=== PATIENT | male | born 1960 | race African-American/Black ===

== ENCOUNTER 2019-09-26 11:28 | Inpatient (IN) ==
[2019-09-26] MEDS ORDERED: *HR* HYDROmorphone (PF) 1 MG/ML SYRINGE IVP ONE (11:37)
[2019-09-26] MEDS ORDERED: 0.9 % Sodium Chloride 1,000 ML IVC ONE (11:37)
[2019-09-26] MEDS ORDERED: Acetaminophen 325 MG TABLET PO PRN (12:32)
[2019-09-26] MEDS ORDERED: Ondansetron 4 MG/2 ML VIAL IVP PRN (12:32)
[2019-09-26] MEDS ORDERED: Morphine Sulfate Immed Rel 15 MG TABLET PO PRN (12:34)
[2019-09-26] MEDS ORDERED: Isovue-370 500 ML BOTTLE IVP ONE ×2 (16:27→16:31)
[2019-09-26] MEDS ORDERED: Gadolinium Contrast Agent (WT Based) IV PRN (16:52)
[2019-09-26] MEDS: Ringers Solution, Lactated 1,000 ML IVC SCH (16:53)
[2019-09-26] MEDS: *HR* HYDROcodone/Acet 10/325 mg TABLET PO PRN (16:53)
[2019-09-26] MEDS: Morphine Sulfate ER (12 HR) 30 MG TABLET.ER PO SCH (20:46)
[2019-09-26] MEDS ORDERED: 0.9 % Sodium Chloride 250 ML ONE (21:32)
[2019-09-27] MEDS: Ringers Solution, Lactated 1,000 ML IVC SCH (00:09)
[2019-09-27 05:00] LABS: Immature Reticulocyte % 23.1 % (11.0-38.0); Retculocyte # 0.09 M/mcL (0.05-0.10); Reticulocyte % 4.8 % (1.6-2.8)
[2019-09-27 05:02] LABS: Eosinophils # 0.1 K/mcL (0.0-0.6); Eosinophils % 2.6 %; Hematocrit 20.1 % (37.5-50.1); Hemoglobin 6.6 g/dL (12.9-16.9); Immature Granulocytes % 0.3 % (0-4); Lymphocytes # 0.4 K/mcL (0.6-4.6); Lymphocytes % 14.1 %; Mean Corpuscular HGB Conc 32.8 g/dL (31.6-35.5); Mean Corpuscular Hemoglobin 33.3 pg (28.0-33.3); Mean Corpuscular Volume 101.5 fL (83.0-100.0); Mean Platelet Volume 9.3 fL (9.4-12.4); Monocytes # 0.4 K/mcL (0.0-1.3); Monocytes % 12.2 %; Neutrophils # 2.2 K/mcL (1.6-8.9); Platelet Count 134 K/mcL (140-400); Red Blood Count 1.98 M/mcL (4.19-5.50); Red Cell Distribution Width 17.1 % (11.5-14.5); Segmented Neutrophils % 69.8 %; White Blood Count 3.1 K/mcL (4.3-11.1)
[2019-09-27 05:19] LABS: BUN/Creatinine Ratio 14 (6-26); Blood Urea Nitrogen 12 mg/dL (6-20); Calcium 8.5 mg/dL (8.6-10.3); Carbon Dioxide 25 mEq/L (23-29); Chloride 109 mEq/L (98-107); Glucose 103 mg/dL (70-105); Magnesium 1.9 mg/dL (1.6-2.6); Osmolality,Calculated 282 (280-300); Phosphorous 3.2 mg/dL (2.7-4.5); Potassium 4.1 mEq/L (3.5-5.1); Sodium 136 mEq/L (136-145); eGFR For African Americans > 60 (> 60); eGFR For Non-African Americans > 60 (> 60)
[2019-09-27 05:21] LABS: Alanine Aminotransferase 46 Units/L (7-52); Albumin/Globulin Ratio 1.5 (1.1-2.2); Alkaline Phosphatase 311 Units/L (34-104); Aspartate Amino Transferase 32 Units/L (13-39); BUN/Creatinine Ratio 14 (6-26); Bilirubin,Total 0.9 mg/dL (0.3-1.0); Blood Urea Nitrogen 12 mg/dL (6-20); Calcium 8.4 mg/dL (8.6-10.3); Carbon Dioxide 25 mEq/L (23-29); Chloride 108 mEq/L (98-107); Glucose 104 mg/dL (70-105); Osmolality,Calculated 282 (280-300); Sodium 136 mEq/L (136-145); eGFR For African Americans > 60 (> 60); eGFR For Non-African Americans > 60 (> 60)
[2019-09-27] MEDS ORDERED: Acetaminophen IV 1,000 MG/100 ML INFUS..BTL IVPB ONE (05:39)
[2019-09-27 05:43] LABS: Folate 3.7 ng/mL (3.0-16.0)
[2019-09-27] MEDS: 0.9 % Sodium Chloride 1,000 ML IVC SCH (06:13)
[2019-09-27 06:20] LABS: Hepatitis B Surface Antigen Nonreactive (Nonreactive)
[2019-09-27 06:48] LABS: Hepatitis C Virus Antibody Nonreactive (Nonreactive)
[2019-09-27 06:49] LABS: Hepatitis B Core IgM Nonreactive (Nonreactive)
[2019-09-27 06:50] LABS: Hepatitis A Antibody IgM Nonreactive (Nonreactive)
[2019-09-27] MEDS ORDERED: 0.9 % Sodium Chloride 250 ML ONE ×2 (08:31→11:35)
[2019-09-27] MEDS: Morphine Sulfate ER (12 HR) 30 MG TABLET.ER PO SCH ×2 (08:44→17:41)
[2019-09-27] MEDS ORDERED: *HR* Alteplase (Cathflo) 2 MG VIAL IVP ONE (14:55)
[2019-09-27 22:26] LABS: Hematocrit 25.6 % (37.5-50.1); Hemoglobin 8.8 g/dL (12.9-16.9); Mean Corpuscular HGB Conc 34.4 g/dL (31.6-35.5); Mean Corpuscular Hemoglobin 32.7 pg (28.0-33.3); Mean Platelet Volume 9.2 fL (9.4-12.4); Platelet Count 162 K/mcL (140-400); Red Blood Count 2.69 M/mcL (4.19-5.50); Red Cell Distribution Width 17.5 % (11.5-14.5); White Blood Count 3.4 K/mcL (4.3-11.1)
[2019-09-27 22:27] LABS: Mean Corpuscular Volume 95.2 fL (83.0-100.0)
[2019-09-27 23:07] LABS: Uric Acid 5.7 mg/dL (2.3-7.6)
[2019-09-28] MEDS: Morphine Sulfate ER (12 HR) 30 MG TABLET.ER PO SCH ×2 (06:08→17:17)
[2019-09-28] MEDS ORDERED: Folic Acid 1 MG TABLET PO SCH (09:00)
[2019-09-28 10:15] LABS: Hematocrit 25.2 % (37.5-50.1); Hemoglobin 8.5 g/dL (12.9-16.9); Mean Corpuscular HGB Conc 33.7 g/dL (31.6-35.5); Mean Corpuscular Hemoglobin 33.7 pg (28.0-33.3); Platelet Count 142 K/mcL (140-400); Red Blood Count 2.52 M/mcL (4.19-5.50); Red Cell Distribution Width 17.3 % (11.5-14.5); White Blood Count 3.2 K/mcL (4.3-11.1)
[2019-09-28 10:31] LABS: INR 1.2; Prothrombin Time 13.4 Seconds (9.4-12.1)
[2019-09-28 10:32] LABS: Alanine Aminotransferase 37 Units/L (7-52); Albumin 3.1 g/dL (3.5-5.7); Albumin/Globulin Ratio 1.4 (1.1-2.2); Alkaline Phosphatase 365 Units/L (34-104); Aspartate Amino Transferase 23 Units/L (13-39); BUN/Creatinine Ratio 13 (6-26); Bilirubin,Direct 0.3 mg/dL (0.0-0.2); Bilirubin,Indirect 0.7 mg/dL (0.0-1.0); Blood Urea Nitrogen 11 mg/dL (6-20); Calcium 8.9 mg/dL (8.6-10.3); Carbon Dioxide 27 mEq/L (23-29); Chloride 107 mEq/L (98-107); Globulin 2.2 g/dL (2.4-3.5); Glucose 116 mg/dL (70-105); Osmolality,Calculated 286 (280-300); Phosphorous 3.5 mg/dL (2.7-4.5); Sodium 138 mEq/L (136-145); Total Protein 5.3 g/dL (6.4-8.9); eGFR For African Americans > 60 (> 60); eGFR For Non-African Americans > 60 (> 60)
[2019-09-28] MEDS: *HR* HYDROcodone/Acet 10/325 mg TABLET PO PRN (16:07)
[2019-09-28 19:17] VITALS: BP 100/65
[2019-09-28] MEDS ORDERED: *HR* Promethazine 25 MG/ML VIAL IVP ONE (19:36)
[2019-09-28] MEDS: 0.9 % Sodium Chloride 1,000 ML IVC SCH (20:06)
[2019-09-29 15:41] LABS: ANA IgG by ELISA NONE DETECTED (None Detected)
[2019-09-29 18:10] LABS: FACV Specimen WHOLE BLOOD
[2019-09-29 18:43] LABS: ANA HEp-2 IgG IFA <1:80 (<1:80)
[2019-09-30 10:48] LABS: Fac V Leiden R506Q Mut Result NEGATIVE
[2019-10-01 05:32] LABS: Alpha 2 Globulin (PEP) 0.66 g/dL (0.48-1.05); Beta Globulin (PEP) 0.44 g/dL (0.48-1.10)
[2019-10-01 08:39] LABS: IFE Reflexed IFE Done; Immunoglobulin G 570 mg/dL (768-1632)
[2019-10-01 08:40] LABS: Immunoglobulin A 103 mg/dL (68-408); Immunoglobulin M 20 mg/dL (35-263)
[2019-10-03 06:17] LABS: BCR-ABL1 Specimen Source NOT SPECIFIED
== END 2019-09-28 23:25 | disposition other institution (70) | DRG 254 ==
LOC: SUATTDRO → 3ANU 11:28 → EMEROOARM 11:28 → SUATTDRO 14:49 → 3ANU 15:43
PROVIDERS: ADMIT Internal Medicine; ATTEND Internal Medicine

== ENCOUNTER 2019-10-23 18:35 | Inpatient (IN) ==
[2019-10-23 18:45] LABS: ABG Base Excess -7 mEq/L (-2 to 3); ABG HCO3 18 mEq/L (21-27); ABG Oxygen Saturation 100 % (95-98); ABG PCO2 29 mmHg (35-45); ABG PH 7.39 pH Units (7.32-7.45); ABG PO2 252 mmHg (85-104); ABG TCO2 18 mEq/L (20-26)
[2019-10-23] MEDS ORDERED: Isovue-370 500 ML BOTTLE IVP ONE (18:45)
[2019-10-23] MEDS ORDERED: 0.9 % Sodium Chloride 1,000 ML IVC ONE ×2 (18:46)
[2019-10-23] MEDS ORDERED: 0.9 % Sodium Chloride 1,000 ML ONE (18:46)
[2019-10-23] MEDS ORDERED: cefTRIAXone 1,000 MG in Water for inj. (sterile) 10 ML IVP ONE (18:46)
[2019-10-23] MEDS ORDERED: Ondansetron 4 MG/2 ML VIAL ONE (18:54)
[2019-10-23 19:25] LABS: INR 2.2; Prothrombin Time 25.5 Seconds (9.4-12.1)
[2019-10-23 19:26] LABS: Eosinophils % 0.2 %; Immature Granulocytes % 0.5 % (0-4); Lymphocytes # 0.8 K/mcL (0.6-4.6); Lymphocytes % 18.4 %; Mean Corpuscular HGB Conc 29.8 g/dL (31.6-35.5); Mean Corpuscular Hemoglobin 34.7 pg (28.0-33.3); Mean Corpuscular Volume 116.3 fL (83.0-100.0); Mean Platelet Volume 9.9 fL (9.4-12.4); Monocytes # 0.5 K/mcL (0.0-1.3); Monocytes % 10.9 %; Nucleated Red Blood Cells 1.9 /100 WBC (0); Platelet Count 155 K/mcL (140-400); Red Blood Count 0.98 M/mcL (4.19-5.50); Red Cell Distribution Width 19.6 % (11.5-14.5); White Blood Count 4.3 K/mcL (4.3-11.1)
[2019-10-23 19:27] LABS: Alanine Aminotransferase 46 Units/L (7-52); Albumin 2.4 g/dL (3.5-5.7); Albumin/Globulin Ratio 1.5 (1.1-2.2); Alkaline Phosphatase 464 Units/L (34-104); Aspartate Amino Transferase 23 Units/L (13-39); BUN/Creatinine Ratio 25 (6-26); Bilirubin,Direct 0.3 mg/dL (0.0-0.2); Bilirubin,Indirect 0.5 mg/dL (0.0-1.0); Bilirubin,Total 0.8 mg/dL (0.3-1.0); Blood Urea Nitrogen 41 mg/dL (6-20); Calcium 7.3 mg/dL (8.6-10.3); Carbon Dioxide 17 mEq/L (23-29); Chloride 105 mEq/L (98-107); Globulin 1.6 g/dL (2.4-3.5); Glucose 194 mg/dL (70-105); Lipase 8 Units/L (11-82); Magnesium 2.1 mg/dL (1.6-2.6); Osmolality,Calculated 301 (280-300); Potassium 3.8 mEq/L (3.5-5.1); Sodium 138 mEq/L (136-145); Troponin I < 0.03 ng/mL (< 0.04); eGFR For African Americans 52 (> 60); eGFR For Non-African Americans 43 (> 60)
[2019-10-23 19:28] LABS: Activated Partial Thrombo Time 37.5 Seconds (26.0-36.0)
[2019-10-23 19:32] LABS: Hematocrit 11.4 % (37.5-50.1); Hemoglobin 3.4 g/dL (12.9-16.9)
[2019-10-23 19:34] LABS: Anisocytosis 1+ (Not Present); Hypochromasia Present (Not Present); Microcytosis Present (Not Present); Platelet Estimate Normal (Normal)
[2019-10-23] MEDS ORDERED: Pantoprazole 40 MG VIAL IVP ONE (19:38)
[2019-10-23] MEDS ORDERED: HUM PROTHROMBIN CPLX IVPB ONE (19:45)
[2019-10-23] MEDS ORDERED: [UNRECOGNIZED DRUG - OTHER] IVPB ONE (19:45)
[2019-10-23] MEDS ORDERED: WATER FOR INJ IVPB ONE (19:45)
[2019-10-23 20:46] LABS: Bilirubin,Urine Small (Negative); Blood,Urine Small (Negative); Clarity,Urine Cloudy (Clear); Color,Urine Dark Yellow (Yellow); Glucose,Urine (UA) Normal (Normal); Ketones,Urine Negative (Negative); Leukocyte Esterase,Urine Negative (Negative); Nitrite,Urine Negative (Negative); PH,Urine 5.5 pH Units (5.0-8.0); Protein,Urine 100 mg/dL (Neg-Trace); Specific Gravity,Urine 1.026 (1.010-1.025); Urobilinogen,Urine Normal (Normal)
[2019-10-23 20:50] LABS: RBC,Urine 15-30 per hpf (0-3); Squamous Epithelial Cell,Urine Many per lpf (None-Few); WBC,Urine 30-50 per hpf (0-3)
[2019-10-23] MEDS ORDERED: Azithromycin 500 MG in 0.9 % Sodium Chloride 250 ML IVPB ONE (21:00)
[2019-10-23] MEDS: FentaNYL (PF) 1,000 MCG in 0.9 % Sodium Chloride 80 ML IVC SCH (22:38)
[2019-10-23] MEDS ORDERED: Ondansetron 4 MG/2 ML VIAL IVP STA (22:42)
[2019-10-23 22:58] LABS: Amorphous Sediment,Urine Moderate per hpf (Few)
[2019-10-23 22:59] LABS: Bacteria,Urine Few per hpf (None-Few)
[2019-10-24] MEDS ORDERED: Ondansetron 4 MG/2 ML VIAL IVP PRN (00:34)
[2019-10-24] MEDS ORDERED: Ketorolac 15 MG/ML VIAL IVP PRN (00:34)
[2019-10-24] MEDS ORDERED: Naloxone 0.4 MG/ML INJ IVP PRN (00:34)
[2019-10-24 00:47] LABS: Basophils % 0.2 %; Hematocrit 24.5 % (37.5-50.1); Immature Granulocytes % 0.2 % (0-4); Lymphocytes # 0.3 K/mcL (0.6-4.6); Lymphocytes % 5.1 %; Mean Corpuscular HGB Conc 33.9 g/dL (31.6-35.5); Mean Corpuscular Hemoglobin 34.2 pg (28.0-33.3); Mean Platelet Volume 9.9 fL (9.4-12.4); Monocytes # 0.6 K/mcL (0.0-1.3); Neutrophils # 5.2 K/mcL (1.6-8.9); Nucleated Red Blood Cells 1.1 /100 WBC (0); Platelet Count 152 K/mcL (140-400); Red Blood Count 2.43 M/mcL (4.19-5.50); Red Cell Distribution Width 17.1 % (11.5-14.5); Segmented Neutrophils % 84.5 %; White Blood Count 6.1 K/mcL (4.3-11.1)
[2019-10-24 00:48] LABS: Hemoglobin 8.3 g/dL (12.9-16.9); Mean Corpuscular Volume 100.8 fL (83.0-100.0)
[2019-10-24] MEDS: 0.9 % Sodium Chloride 1,000 ML IVC SCH ×4 (02:13→23:41)
[2019-10-24] MEDS: Azithromycin 500 MG in 0.9 % Sodium Chloride 250 ML IVPB SCH (02:14)
[2019-10-24 04:52] LABS: Hematocrit 22.3 % (37.5-50.1); Hemoglobin 7.3 g/dL (12.9-16.9); Immature Granulocytes % 0.2 % (0-4); Lymphocytes # 0.3 K/mcL (0.6-4.6); Lymphocytes % 2.7 %; Mean Corpuscular HGB Conc 32.7 g/dL (31.6-35.5); Mean Corpuscular Volume 100.9 fL (83.0-100.0); Mean Platelet Volume 9.8 fL (9.4-12.4); Monocytes % 10.6 %; Nucleated Red Blood Cells 1.2 /100 WBC (0); Platelet Count 148 K/mcL (140-400); Red Blood Count 2.21 M/mcL (4.19-5.50); Red Cell Distribution Width 17.4 % (11.5-14.5); Segmented Neutrophils % 86.5 %
[2019-10-24 04:53] LABS: White Blood Count 9.3 K/mcL (4.3-11.1)
[2019-10-24 05:06] LABS: Calcium 7.7 mg/dL (8.6-10.3); Potassium 4.6 mEq/L (3.5-5.1)
[2019-10-24] MEDS: Piperacillin/Tazobactam 3.375 GM in 0.9 % Sodium Chloride Mini Bag 100 ML IVPB SCH ×3 (08:22→23:42)
[2019-10-24] MEDS: *HR* Heparin 5,000 UNIT/ML VIAL SQ SCH ×3 (08:22→23:42)
[2019-10-24] MEDS: Calcium Gluconate 1gm/50mL 1 GM/50 ML BAG IVPB SCH ×2 (08:24→17:16)
[2019-10-24] MEDS ORDERED: Pantoprazole 40 MG VIAL IVP SCH (09:00)
[2019-10-24 11:11] LABS: VBG Ionized Calcium 1.08 mmol/L (1.15-1.35)
[2019-10-24 11:11] LABS: Basophils % 0.1 %; Hematocrit 21.4 % (37.5-50.1); Hemoglobin 7.3 g/dL (12.9-16.9); Immature Granulocytes % 0.2 % (0-4); Lymphocytes # 0.4 K/mcL (0.6-4.6); Lymphocytes % 3.5 %; Mean Corpuscular HGB Conc 34.1 g/dL (31.6-35.5); Mean Corpuscular Hemoglobin 33.8 pg (28.0-33.3); Mean Corpuscular Volume 99.1 fL (83.0-100.0); Mean Platelet Volume 9.6 fL (9.4-12.4); Monocytes # 0.9 K/mcL (0.0-1.3); Monocytes % 7.8 %; Neutrophils # 9.8 K/mcL (1.6-8.9); Nucleated Red Blood Cells 0.8 /100 WBC (0); Platelet Count 155 K/mcL (140-400); Red Blood Count 2.16 M/mcL (4.19-5.50); Segmented Neutrophils % 88.4 %; White Blood Count 11.1 K/mcL (4.3-11.1)
[2019-10-24] MEDS ORDERED: Calcium Gluconate 1gm/50mL 1 GM/50 ML BAG IVPB SCH (15:00)
[2019-10-24 18:43] LABS: Hemoglobin 7.7 g/dL (12.9-16.9)
[2019-10-24 18:47] LABS: Basophils % 0.2 %; Hematocrit 22.6 % (37.5-50.1); Immature Granulocytes % 0.3 % (0-4); Immature Platelets 2.9 % (1.1-6.1); Lymphocytes # 0.5 K/mcL (0.6-4.6); Lymphocytes % 4.4 %; Mean Corpuscular HGB Conc 34.1 g/dL (31.6-35.5); Mean Corpuscular Hemoglobin 34.1 pg (28.0-33.3); Monocytes # 1.1 K/mcL (0.0-1.3); Monocytes % 9.7 %; Neutrophils # 9.9 K/mcL (1.6-8.9); Nucleated Red Blood Cells 0.7 /100 WBC (0); Platelet Count 142 K/mcL (140-400); Red Blood Count 2.26 M/mcL (4.19-5.50); Red Cell Distribution Width 18.7 % (11.5-14.5); Segmented Neutrophils % 85.4 %; White Blood Count 11.6 K/mcL (4.3-11.1)
[2019-10-24] MEDS: Pantoprazole 40 MG VIAL IVP SCH (19:03)
[2019-10-24 19:16] LABS: Anisocytosis 1+ (Not Present); Polychromasia 1+ (Not Present)
[2019-10-24] MEDS: Chloraseptic Spray 177 ML BOTTLE MM PRN ×2 (21:46→23:42)
[2019-10-24] MEDS: FentaNYL (PF) 1,000 MCG in 0.9 % Sodium Chloride 80 ML IVC SCH (21:46)
[2019-10-25 01:22] LABS: Basophils % 0.1 %; Hematocrit 20.9 % (37.5-50.1); Hemoglobin 6.9 g/dL (12.9-16.9); Immature Granulocytes % 0.2 % (0-4); Lymphocytes # 0.4 K/mcL (0.6-4.6); Lymphocytes % 4.9 %; Mean Platelet Volume 10.4 fL (9.4-12.4); Monocytes # 0.8 K/mcL (0.0-1.3); Monocytes % 8.4 %; Neutrophils # 7.7 K/mcL (1.6-8.9); Nucleated Red Blood Cells 0.7 /100 WBC (0); Platelet Count 134 K/mcL (140-400); Red Blood Count 2.03 M/mcL (4.19-5.50); Red Cell Distribution Width 18.8 % (11.5-14.5); Segmented Neutrophils % 86.4 %; White Blood Count 8.9 K/mcL (4.3-11.1)
[2019-10-25 01:43] LABS: Calcium 8.1 mg/dL (8.6-10.3); Potassium 4.4 mEq/L (3.5-5.1)
[2019-10-25] MEDS ORDERED: 0.9 % Sodium Chloride 250 ML ONE ×2 (02:41→20:15)
[2019-10-25] MEDS: Azithromycin 500 MG in 0.9 % Sodium Chloride 250 ML IVPB SCH (02:45)
[2019-10-25] MEDS: Chloraseptic Spray 177 ML BOTTLE MM PRN (03:20)
[2019-10-25] MEDS: Pantoprazole 40 MG VIAL IVP SCH ×2 (05:11→16:52)
[2019-10-25] MEDS: *HR* Heparin 5,000 UNIT/ML VIAL SQ SCH ×3 (07:57→21:40)
[2019-10-25] MEDS: 0.9 % Sodium Chloride 1,000 ML IVC SCH ×5 (07:57→23:19)
[2019-10-25] MEDS: Piperacillin/Tazobactam 3.375 GM in 0.9 % Sodium Chloride Mini Bag 100 ML IVPB SCH ×3 (07:58→23:39)
[2019-10-25] MEDS ORDERED: Morphine Sulfate Immed Rel 15 MG TABLET PO PRN (10:24)
[2019-10-25] MEDS ORDERED: Chloraseptic Spray 177 ML BOTTLE MM PRN (10:24)
[2019-10-25] MEDS ORDERED: Naloxone 0.4 MG/ML INJ IVP PRN (10:24)
[2019-10-25] MEDS ORDERED: Ketorolac 15 MG/ML VIAL IVP PRN (10:24)
[2019-10-25] MEDS ORDERED: *HR* HYDROcodone/Acet 10/325 mg TABLET PO PRN (10:24)
[2019-10-25 10:30] LABS: VBG Ionized Calcium 1.11 mmol/L (1.15-1.35)
[2019-10-25 10:31] LABS: Basophils % 0.2 %; Eosinophils % 0.1 %; Hematocrit 21.9 % (37.5-50.1); Hemoglobin 7.4 g/dL (12.9-16.9); Immature Granulocytes % 0.5 % (0-4); Lymphocytes # 0.4 K/mcL (0.6-4.6); Lymphocytes % 4.1 %; Mean Corpuscular HGB Conc 33.8 g/dL (31.6-35.5); Mean Corpuscular Hemoglobin 33.6 pg (28.0-33.3); Mean Corpuscular Volume 99.5 fL (83.0-100.0); Monocytes # 0.9 K/mcL (0.0-1.3); Monocytes % 10.5 %; Neutrophils # 7.4 K/mcL (1.6-8.9); Nucleated Red Blood Cells 0.5 /100 WBC (0); Platelet Count 104 K/mcL (140-400); Red Cell Distribution Width 18.6 % (11.5-14.5); Segmented Neutrophils % 84.6 %; White Blood Count 8.8 K/mcL (4.3-11.1)
[2019-10-25 10:46] LABS: Calcium 7.8 mg/dL (8.6-10.3); INR 1.3; Potassium 4.5 mEq/L (3.5-5.1); Prothrombin Time 14.9 Seconds (9.4-12.1)
[2019-10-25] MEDS ORDERED: Lidocaine -MPF 1% 5 ML AMPUL INFILT ONE (11:17)
[2019-10-25 12:20] LABS: Magnesium 2.1 mg/dL (1.6-2.6)
[2019-10-25] MEDS ORDERED: D5% in Water 1,000 ML IVC PRN (12:23)
[2019-10-25] MEDS ORDERED: *HR* Dextrose 50 % in Water (Syg) 50 ML SYRINGE IVP PRN (12:23)
[2019-10-25] MEDS ORDERED: Dextrose Gel 15 GM/37.5 ML TUBE PO PRN ×2 (12:23)
[2019-10-25] MEDS ORDERED: D10% in Water 500 ML IVC PRN (12:35)
[2019-10-25 15:17] LABS: Estimated Average Glucose 94 mg/dl
[2019-10-25] MEDS: Insulin LISPRO 300 UNITS/3 ML VIAL SQ SCH ×2 (16:55→20:10)
[2019-10-25] MEDS ORDERED: Clinimix E 5%-15% SOLUTION 2,000 ML with MVI, adult with vitamin K 10 ML IVC SCH (17:00)
[2019-10-25 18:10] LABS: Basophils % 0.3 %; Eosinophils % 0.4 %; Hemoglobin 6.9 g/dL (12.9-16.9); Immature Granulocytes % 0.4 % (0-4); Lymphocytes # 0.3 K/mcL (0.6-4.6); Lymphocytes % 3.2 %; Mean Corpuscular HGB Conc 32.9 g/dL (31.6-35.5); Mean Corpuscular Hemoglobin 33.7 pg (28.0-33.3); Mean Corpuscular Volume 102.4 fL (83.0-100.0); Mean Platelet Volume 9.8 fL (9.4-12.4); Monocytes # 0.7 K/mcL (0.0-1.3); Monocytes % 9.1 %; Neutrophils # 6.7 K/mcL (1.6-8.9); Nucleated Red Blood Cells 0.3 /100 WBC (0); Red Blood Count 2.05 M/mcL (4.19-5.50); Red Cell Distribution Width 19.2 % (11.5-14.5); Segmented Neutrophils % 86.6 %; White Blood Count 7.7 K/mcL (4.3-11.1)
[2019-10-25 18:11] LABS: Platelet Count 82 K/mcL (140-400)
[2019-10-25] MEDS ORDERED: *HR* Propofol 200 MG/20 ML VIAL IVP ONE ×2 (18:23→18:55)
[2019-10-25] MEDS ORDERED: Lidocaine -MPF 1% 5 ML AMPUL ONE (18:25)
[2019-10-25] MEDS ORDERED: *HR* PHENYLEPHRINE 1,000 MCG/10 ML SYRINGE IVP ONE (18:25)
[2019-10-25 18:28] LABS: Calcium 7.7 mg/dL (8.6-10.3); Potassium 3.9 mEq/L (3.5-5.1)
[2019-10-25] MEDS ORDERED: *HR* FentaNYL (PF) 100 MCG/2 ML VIAL ONE (18:55)
[2019-10-25 20:04] LABS: Sodium, Urine 64.8 mEq/L
[2019-10-26] MEDS: Insulin LISPRO 300 UNITS/3 ML VIAL SQ SCH ×6 (00:34→21:12)
[2019-10-26] MEDS: Ondansetron 4 MG/2 ML VIAL IVP PRN (01:57)
[2019-10-26] MEDS ORDERED: Azithromycin 500 MG in 0.9 % Sodium Chloride 250 ML IVPB SCH (02:00)
[2019-10-26] MEDS: 0.9 % Sodium Chloride 1,000 ML IVC SCH (03:58)
[2019-10-26 04:03] LABS: Basophils % 0.3 %; Eosinophils # 0.1 K/mcL (0.0-0.6); Eosinophils % 0.8 %; Hematocrit 23.8 % (37.5-50.1); Hemoglobin 7.9 g/dL (12.9-16.9); Immature Granulocytes % 0.8 % (0-4); Immature Platelets 2.3 % (1.1-6.1); Lymphocytes # 0.2 K/mcL (0.6-4.6); Lymphocytes % 2.6 %; Mean Corpuscular HGB Conc 33.2 g/dL (31.6-35.5); Mean Corpuscular Hemoglobin 32.8 pg (28.0-33.3); Mean Corpuscular Volume 98.8 fL (83.0-100.0); Mean Platelet Volume 10.1 fL (9.4-12.4); Monocytes # 0.7 K/mcL (0.0-1.3); Monocytes % 10.1 %; Neutrophils # 6.2 K/mcL (1.6-8.9); Nucleated Red Blood Cells 0.6 /100 WBC (0); Red Blood Count 2.41 M/mcL (4.19-5.50); Red Cell Distribution Width 18.6 % (11.5-14.5); Segmented Neutrophils % 85.4 %; White Blood Count 7.2 K/mcL (4.3-11.1)
[2019-10-26 04:11] LABS: Platelet Count 79 K/mcL (140-400)
[2019-10-26 04:20] LABS: Calcium 7.9 mg/dL (8.6-10.3); Magnesium 2.1 mg/dL (1.6-2.6); Potassium 3.8 mEq/L (3.5-5.1)
[2019-10-26 04:54] LABS: Anisocytosis 1+ (Not Present); Microcytosis Present (Not Present)
[2019-10-26 04:55] LABS: Platelet Estimate Decreased (Normal)
[2019-10-26] MEDS: *HR* Heparin 5,000 UNIT/ML VIAL SQ SCH ×3 (05:53→21:10)
[2019-10-26] MEDS: Pantoprazole 40 MG VIAL IVP SCH ×2 (05:54→18:02)
[2019-10-26] MEDS: Piperacillin/Tazobactam 3.375 GM in 0.9 % Sodium Chloride Mini Bag 100 ML IVPB SCH (07:58)
[2019-10-26] MEDS ORDERED: Sodium Bicarbonate 75 MEQ in 0.45 % Sodium Chloride 1,000 ML IVC SCH ×2 (11:15→13:00)
[2019-10-26 11:26] LABS: Bilirubin,Urine Negative (Negative); Blood,Urine Trace (Negative); Clarity,Urine Clear (Clear); Color,Urine Yellow (Yellow); Glucose,Urine (UA) Normal (Normal); Ketones,Urine Negative (Negative); Leukocyte Esterase,Urine Trace (Negative); Nitrite,Urine Negative (Negative); Protein,Urine 100 mg/dL (Neg-Trace); Specific Gravity,Urine 1.021 (1.010-1.025); Urobilinogen,Urine Normal (Normal)
[2019-10-26 11:28] LABS: Bacteria,Urine None Seen per hpf (None-Few); Hyaline Casts,Urine None Seen per lpf (None-Few); Squamous Epithelial Cell,Urine Many per lpf (None-Few)
[2019-10-26 11:44] LABS: Protein/Creatinine Ratio,Urine 24.29 mg/mg (0.00-0.20)
[2019-10-26 11:50] LABS: Transitional Epi Cells,Urine Few per hpf (None-Few)
[2019-10-26] MEDS ORDERED: 0.9 % Sodium Chloride 500 ML ONE ×2 (13:58→14:27)
[2019-10-26] MEDS ORDERED: Heparin 1,000 UNITS/500 mL 500 ML ONE (13:58)
[2019-10-26] MEDS ORDERED: *HR* FentaNYL (PF) 100 MCG/2 ML VIAL IVP ONE ×2 (14:32→14:34)
[2019-10-26] MEDS ORDERED: *HR* Midazolam HCl 2 MG/2 ML VIAL IVP ONE ×2 (14:33→14:34)
[2019-10-26] MEDS ORDERED: Piperacillin/Tazobactam 3.375 GM in 0.9 % Sodium Chloride Mini Bag 100 ML IVPB ONE (14:34)
[2019-10-26] MEDS ORDERED: *HR* FentaNYL (PF) 100 MCG/2 ML VIAL ONE (14:46)
[2019-10-26] MEDS ORDERED: *HR* Midazolam HCl 2 MG/2 ML VIAL ONE (14:47)
[2019-10-26] MEDS ORDERED: Isovue-300 50ML VIAL IVP ONE (14:57)
[2019-10-26] MEDS ORDERED: Clinimix E 5%-15% SOLUTION 2,000 ML with MVI, adult with vitamin K 10 ML IVC SCH (17:00)
[2019-10-26] MEDS: *HR* FentaNYL (PF) 100 MCG/2 ML VIAL IVP PRN ×3 (18:53→23:14)
[2019-10-26 21:58] LABS: Calcium 8.3 mg/dL (8.6-10.3); Potassium 3.5 mEq/L (3.5-5.1)
[2019-10-27] MEDS: Insulin LISPRO 300 UNITS/3 ML VIAL SQ SCH ×6 (00:01→20:19)
[2019-10-27] MEDS: *HR* FentaNYL (PF) 100 MCG/2 ML VIAL IVP PRN ×9 (01:51→23:27)
[2019-10-27] MEDS: Sodium Bicarbonate 75 MEQ in 0.45 % Sodium Chloride 1,000 ML IVC SCH ×2 (02:55→14:03)
[2019-10-27] MEDS: Pantoprazole 40 MG VIAL IVP SCH ×2 (05:34→17:16)
[2019-10-27] MEDS: *HR* Heparin 5,000 UNIT/ML VIAL SQ SCH ×3 (05:34→20:17)
[2019-10-27 06:02] LABS: Basophils % 0.3 %; Eosinophils # 0.1 K/mcL (0.0-0.6); Eosinophils % 0.8 %; Lymphocytes # 0.2 K/mcL (0.6-4.6); Lymphocytes % 2.5 %; White Blood Count 7.6 K/mcL (4.3-11.1)
[2019-10-27 06:05] LABS: Hematocrit 23.5 % (37.5-50.1); Hemoglobin 7.9 g/dL (12.9-16.9); Immature Granulocytes % 0.7 % (0-4); Immature Platelets 2.7 % (1.1-6.1); Mean Corpuscular HGB Conc 33.6 g/dL (31.6-35.5); Mean Corpuscular Hemoglobin 33.2 pg (28.0-33.3); Mean Corpuscular Volume 98.7 fL (83.0-100.0); Mean Platelet Volume 10.3 fL (9.4-12.4); Monocytes # 0.7 K/mcL (0.0-1.3); Neutrophils # 6.6 K/mcL (1.6-8.9); Nucleated Red Blood Cells 0.5 /100 WBC (0); Red Blood Count 2.38 M/mcL (4.19-5.50); Red Cell Distribution Width 19.6 % (11.5-14.5); Segmented Neutrophils % 86.7 %
[2019-10-27 06:13] LABS: Platelet Count 88 K/mcL (140-400)
[2019-10-27 06:17] LABS: Magnesium 2.1 mg/dL (1.6-2.6); Phosphorous 2.8 mg/dL (2.7-4.5)
[2019-10-27 06:20] LABS: Calcium 8.1 mg/dL (8.6-10.3); Potassium 3.6 mEq/L (3.5-5.1)
[2019-10-27 08:28] LABS: Platelet Estimate Decreased (Normal)
[2019-10-27] MEDS ORDERED: Clinimix E 5%-15% SOLUTION 2,000 ML with MVI, adult with vitamin K 10 ML IVC SCH (17:00)
[2019-10-27 17:36] LABS: Calcium 8.2 mg/dL (8.6-10.3); Potassium 3.5 mEq/L (3.5-5.1)
[2019-10-28] MEDS: Insulin LISPRO 300 UNITS/3 ML VIAL SQ SCH ×6 (00:13→20:03)
[2019-10-28] MEDS: Sodium Bicarbonate 75 MEQ in 0.45 % Sodium Chloride 1,000 ML IVC SCH ×3 (00:45→21:57)
[2019-10-28 02:27] LABS: Magnesium 1.6 mg/dL (1.6-2.6); Phosphorous 3.1 mg/dL (2.7-4.5)
[2019-10-28] MEDS: *HR* FentaNYL (PF) 100 MCG/2 ML VIAL IVP PRN ×5 (02:27→15:09)
[2019-10-28 05:11] LABS: Hematocrit 22.8 % (37.5-50.1); Mean Corpuscular Volume 99.6 fL (83.0-100.0); Red Blood Count 2.29 M/mcL (4.19-5.50)
[2019-10-28 05:13] LABS: Basophils % 0.4 %; Eosinophils # 0.1 K/mcL (0.0-0.6); Eosinophils % 1.9 %; Hemoglobin 7.6 g/dL (12.9-16.9); Immature Granulocytes % 0.4 % (0-4); Immature Platelets 2.8 % (1.1-6.1); Lymphocytes # 0.2 K/mcL (0.6-4.6); Lymphocytes % 2.8 %; Mean Corpuscular HGB Conc 33.3 g/dL (31.6-35.5); Mean Corpuscular Hemoglobin 33.2 pg (28.0-33.3); Mean Platelet Volume 10.7 fL (9.4-12.4); Monocytes # 0.6 K/mcL (0.0-1.3); Monocytes % 10.7 %; Neutrophils # 4.8 K/mcL (1.6-8.9); Nucleated Red Blood Cells 0.4 /100 WBC (0); Red Cell Distribution Width 19.6 % (11.5-14.5); Segmented Neutrophils % 83.8 %; White Blood Count 5.7 K/mcL (4.3-11.1)
[2019-10-28 05:14] LABS: Platelet Count 76 K/mcL (140-400)
[2019-10-28 05:30] LABS: Potassium 3.3 mEq/L (3.5-5.1)
[2019-10-28] MEDS: *HR* Heparin 5,000 UNIT/ML VIAL SQ SCH ×3 (06:12→21:06)
[2019-10-28] MEDS: Pantoprazole 40 MG VIAL IVP SCH ×2 (06:12→17:32)
[2019-10-28] MEDS ORDERED: Potassium Chloride Elixir 20 MEQ/15 ML UDC GTUBE ONE (07:50)
[2019-10-28] MEDS: *HR* FentaNYL PATCH 50 MCG PATCH TD SCH (15:38)
[2019-10-28] MEDS ORDERED: Clinimix E 5%-15% SOLUTION 2,000 ML with MVI, adult with vitamin K 10 ML IVC SCH (17:00)
[2019-10-28] MEDS: Ondansetron 4 MG/2 ML VIAL IVP PRN (21:57)
[2019-10-29] MEDS: Insulin LISPRO 300 UNITS/3 ML VIAL SQ SCH ×6 (00:24→20:09)
[2019-10-29] MEDS: Pantoprazole 40 MG VIAL IVP SCH ×2 (05:00→19:39)
[2019-10-29] MEDS: *HR* Heparin 5,000 UNIT/ML VIAL SQ SCH ×3 (05:00→20:05)
[2019-10-29 05:27] LABS: Basophils % 0.3 %; Immature Granulocytes % 0.3 % (0-4); Mean Corpuscular HGB Conc 33.8 g/dL (31.6-35.5)
[2019-10-29 05:29] LABS: Eosinophils # 0.1 K/mcL (0.0-0.6); Eosinophils % 2.2 %; Hematocrit 23.4 % (37.5-50.1); Hemoglobin 7.9 g/dL (12.9-16.9); Immature Platelets 3.7 % (1.1-6.1); Lymphocytes # 0.2 K/mcL (0.6-4.6); Lymphocytes % 3.2 %; Mean Corpuscular Hemoglobin 33.8 pg (28.0-33.3); Mean Platelet Volume 10.3 fL (9.4-12.4); Monocytes # 0.6 K/mcL (0.0-1.3); Neutrophils # 5.3 K/mcL (1.6-8.9); Platelet Count 86 K/mcL (140-400); Red Blood Count 2.34 M/mcL (4.19-5.50); White Blood Count 6.2 K/mcL (4.3-11.1)
[2019-10-29 05:46] LABS: Albumin 2.7 g/dL (3.5-5.7); Albumin/Globulin Ratio 1.3 (1.1-2.2); Anisocytosis 1+ (Not Present); Bilirubin,Direct 0.2 mg/dL (0.0-0.2); Bilirubin,Indirect 0.3 mg/dL (0.0-1.0); Bilirubin,Total 0.5 mg/dL (0.3-1.0); Calcium 8.1 mg/dL (8.6-10.3); Globulin 2.1 g/dL (2.4-3.5); Macrocytosis Present (Not Present); Magnesium 2.2 mg/dL (1.6-2.6); Phosphorous 3.4 mg/dL (2.7-4.5); Polychromasia 1+ (Not Present); Potassium 3.4 mEq/L (3.5-5.1); Total Protein 4.8 g/dL (6.4-8.9)
[2019-10-29 06:04] LABS: Urine Collection Volume RANDOM mL
[2019-10-29] MEDS: Sodium Bicarbonate 75 MEQ in 0.45 % Sodium Chloride 1,000 ML IVC SCH (12:54)
[2019-10-29] MEDS ORDERED: Clinimix E 5%-15% SOLUTION 2,000 ML with MVI, adult with vitamin K 10 ML IVC SCH (17:00)
[2019-10-30] MEDS: Insulin LISPRO 300 UNITS/3 ML VIAL SQ SCH ×6 (00:14→19:46)
[2019-10-30] MEDS: Sodium Bicarbonate 75 MEQ in 0.45 % Sodium Chloride 1,000 ML IVC SCH ×3 (02:14→16:16)
[2019-10-30 04:29] LABS: Basophils % 0.4 %; Hemoglobin 7.6 g/dL (12.9-16.9); Immature Granulocytes % 0.4 % (0-4); Mean Corpuscular Hemoglobin 33.3 pg (28.0-33.3); Red Blood Count 2.28 M/mcL (4.19-5.50); Red Cell Distribution Width 18.6 % (11.5-14.5)
[2019-10-30 04:31] LABS: Eosinophils # 0.2 K/mcL (0.0-0.6); Eosinophils % 2.7 %; Immature Platelets 3.9 % (1.1-6.1); Lymphocytes # 0.2 K/mcL (0.6-4.6); Lymphocytes % 2.9 %; Mean Corpuscular Volume 100.9 fL (83.0-100.0); Mean Platelet Volume 10.7 fL (9.4-12.4); Monocytes # 0.5 K/mcL (0.0-1.3); Monocytes % 8.8 %; Segmented Neutrophils % 84.8 %; White Blood Count 5.5 K/mcL (4.3-11.1)
[2019-10-30 04:39] LABS: Neutrophils # 4.7 K/mcL (1.6-8.9); Platelet Count 82 K/mcL (140-400)
[2019-10-30 04:46] LABS: Magnesium 2.3 mg/dL (1.6-2.6); Potassium 3.4 mEq/L (3.5-5.1)
[2019-10-30] MEDS: *HR* Heparin 5,000 UNIT/ML VIAL SQ SCH ×3 (05:56→19:46)
[2019-10-30] MEDS: Pantoprazole 40 MG VIAL IVP SCH ×2 (05:56→16:52)
[2019-10-30] MEDS ORDERED: Clinimix E 5%-15% SOLUTION 2,000 ML with MVI, adult with vitamin K 10 ML IVC SCH (17:00)
[2019-10-30] MEDS ORDERED: 0.9 % Sodium Chloride 500 ML ONE (19:30)
[2019-10-31] MEDS: Insulin LISPRO 300 UNITS/3 ML VIAL SQ SCH ×6 (06:01→20:02)
[2019-10-31] MEDS: *HR* Heparin 5,000 UNIT/ML VIAL SQ SCH ×3 (06:02→22:18)
[2019-10-31] MEDS: Pantoprazole 40 MG VIAL IVP SCH ×2 (06:03→17:02)
[2019-10-31 06:26] LABS: Hematocrit 24.1 % (37.5-50.1); Mean Platelet Volume 10.7 fL (9.4-12.4)
[2019-10-31 06:28] LABS: Basophils % 0.5 %; Eosinophils # 0.2 K/mcL (0.0-0.6); Immature Granulocytes % 0.6 % (0-4); Lymphocytes # 0.2 K/mcL (0.6-4.6); Lymphocytes % 2.5 %; Mean Corpuscular HGB Conc 33.2 g/dL (31.6-35.5); Mean Corpuscular Hemoglobin 32.8 pg (28.0-33.3); Mean Corpuscular Volume 98.8 fL (83.0-100.0); Monocytes # 0.5 K/mcL (0.0-1.3); Monocytes % 7.9 %; Red Blood Count 2.44 M/mcL (4.19-5.50); Segmented Neutrophils % 85.5 %; White Blood Count 6.4 K/mcL (4.3-11.1)
[2019-10-31 06:35] LABS: Neutrophils # 5.5 K/mcL (1.6-8.9); Platelet Count 80 K/mcL (140-400)
[2019-10-31 06:46] LABS: Magnesium 2.3 mg/dL (1.6-2.6); Phosphorous 3.2 mg/dL (2.7-4.5); Potassium 3.8 mEq/L (3.5-5.1)
[2019-10-31 07:13] LABS: Anisocytosis 1+ (Not Present); Macrocytosis Present (Not Present); Platelet Estimate Slight Decrease (Normal)
[2019-10-31] MEDS: Sodium Bicarbonate 75 MEQ in 0.45 % Sodium Chloride 1,000 ML IVC SCH ×2 (12:00→22:15)
[2019-10-31] MEDS: *HR* FentaNYL PATCH 50 MCG PATCH TD SCH (15:17)
[2019-10-31] MEDS ORDERED: Clinimix E 5%-15% SOLUTION 2,000 ML with MVI, adult with vitamin K 10 ML IVC SCH (17:00)
[2019-11-01] MEDS: Insulin LISPRO 300 UNITS/3 ML VIAL SQ SCH ×4 (00:53→12:45)
[2019-11-01 00:57] LABS: Alpha 2 Globulin (PEP) 0.77 g/dL (0.48-1.05); Beta Globulin (PEP) 0.46 g/dL (0.48-1.10)
[2019-11-01] MEDS: *HR* Heparin 5,000 UNIT/ML VIAL SQ SCH ×3 (05:07→22:03)
[2019-11-01] MEDS: Pantoprazole 40 MG VIAL IVP SCH (05:25)
[2019-11-01 05:54] LABS: Basophils % 0.6 %; Immature Granulocytes % 0.4 % (0-4); Mean Corpuscular Volume 102.6 fL (83.0-100.0); Mean Platelet Volume 11.1 fL (9.4-12.4)
[2019-11-01 05:56] LABS: Eosinophils # 0.2 K/mcL (0.0-0.6); Eosinophils % 2.7 %; Hematocrit 23.3 % (37.5-50.1); Hemoglobin 7.5 g/dL (12.9-16.9); Immature Platelets 3.8 % (1.1-6.1); Lymphocytes # 0.2 K/mcL (0.6-4.6); Lymphocytes % 2.4 %; Mean Corpuscular HGB Conc 32.2 g/dL (31.6-35.5); Monocytes # 0.6 K/mcL (0.0-1.3); Monocytes % 8.3 %; Red Blood Count 2.27 M/mcL (4.19-5.50); Red Cell Distribution Width 18.8 % (11.5-14.5); Segmented Neutrophils % 85.6 %
[2019-11-01 05:59] LABS: Platelet Count 99 K/mcL (140-400)
[2019-11-01 06:11] LABS: Calcium 8.2 mg/dL (8.6-10.3); Magnesium 2.3 mg/dL (1.6-2.6); Phosphorous 3.5 mg/dL (2.7-4.5)
[2019-11-01 06:34] LABS: Platelet Estimate Slight Decrease (Normal)
[2019-11-01 06:35] LABS: Anisocytosis 1+ (Not Present); Macrocytosis Present (Not Present)
[2019-11-01] MEDS: Sodium Bicarbonate 75 MEQ in 0.45 % Sodium Chloride 1,000 ML IVC SCH ×3 (07:44→22:11)
[2019-11-01 08:36] LABS: IFE Reflexed IFE Done; Immunoglobulin A 91 mg/dL (68-408); Immunoglobulin G 453 mg/dL (768-1632); Immunoglobulin M 16 mg/dL (35-263)
[2019-11-01] MEDS ORDERED: Lidocaine -MPF 2% 2 ML VIAL ONE (16:04)
[2019-11-01] MEDS ORDERED: *HR* FentaNYL (PF) 100 MCG/2 ML VIAL ONE (16:04)
[2019-11-01] MEDS ORDERED: *HR* Midazolam HCl 2 MG/2 ML VIAL ONE (16:05)
[2019-11-01] MEDS ORDERED: Ondansetron 4 MG/2 ML VIAL ONE (16:07)
[2019-11-01] MEDS ORDERED: *HR* Succinylcholine 200 MG/10 ML VIAL IVP ONE (16:07)
[2019-11-01] MEDS ORDERED: Dexamethasone 4 MG/ML VIAL ONE (16:07)
[2019-11-01] MEDS ORDERED: *HR* Propofol 200 MG/20 ML VIAL IVP ONE (16:08)
[2019-11-01] MEDS ORDERED: *HR* PHENYLEPHRINE 1,000 MCG/10 ML SYRINGE IVP ONE (16:12)
[2019-11-01] MEDS ORDERED: CefOXitin 1,000 MG VIAL ONE (16:20)
[2019-11-01] MEDS ORDERED: Clinimix E 5%-15% SOLUTION 2,000 ML with MVI, adult with vitamin K 10 ML, Trace Eleme... IVC SCH ×2 (17:00→21:27)
[2019-11-01] MEDS ORDERED: *HR* Rocuronium Bromide 50 MG/5 ML VIAL ONE (17:53)
[2019-11-01] MEDS ORDERED: *HR* HYDROmorphone 2 MG TABLET PO PRN (18:22)
[2019-11-01] MEDS ORDERED: *HR* OxyCODONE Immed Rel 5 MG TABLET PO PRN (18:22)
[2019-11-01] MEDS ORDERED: *HR* Promethazine 25 MG/ML VIAL IVP PRN (18:22)
[2019-11-01] MEDS ORDERED: *HR* Labetalol 20 MG/4 ML SYRINGE IVP PRN (18:22)
[2019-11-01] MEDS ORDERED: *HR* HYDROmorphone (PF) 1 MG/ML SYRINGE ONE (18:33)
[2019-11-01] MEDS: *HR* HYDROmorphone (PF) 1 MG/ML SYRINGE IVP PRN ×10 (18:42→20:12)
[2019-11-01] MEDS ORDERED: Acetaminophen IV 1,000 MG/100 ML INFUS..BTL IVPB ONE (19:15)
[2019-11-01] MEDS ORDERED: Naloxone 0.4 MG/ML INJ IVP PRN (21:27)
[2019-11-01] MEDS ORDERED: Dextrose Gel 15 GM/37.5 ML TUBE PO PRN ×2 (21:27)
[2019-11-01] MEDS ORDERED: Chloraseptic Spray 177 ML BOTTLE MM PRN (21:27)
[2019-11-01] MEDS ORDERED: D10% in Water 500 ML IVC PRN (21:27)
[2019-11-01] MEDS ORDERED: *HR* Dextrose 50 % in Water (Syg) 50 ML SYRINGE IVP PRN (21:27)
[2019-11-01] MEDS ORDERED: D5% in Water 1,000 ML IVC PRN (21:27)
[2019-11-02] MEDS: Morphine Sulfate 2 MG/ML SYRINGE IVP PRN ×3 (00:56→09:43)
[2019-11-02] MEDS: Insulin LISPRO 300 UNITS/3 ML VIAL SQ SCH ×6 (01:20→21:56)
[2019-11-02 03:04] LABS: Hematocrit 24.1 % (37.5-50.1); Hemoglobin 7.9 g/dL (12.9-16.9)
[2019-11-02 03:20] LABS: Calcium 7.7 mg/dL (8.6-10.3); Magnesium 2.2 mg/dL (1.6-2.6); Phosphorous 3.9 mg/dL (2.7-4.5); Potassium 4.4 mEq/L (3.5-5.1)
[2019-11-02] MEDS: *HR* Heparin 5,000 UNIT/ML VIAL SQ SCH ×3 (06:30→22:00)
[2019-11-02] MEDS: Pantoprazole 40 MG VIAL IVP SCH ×2 (06:31→18:01)
[2019-11-02 07:01] LABS: Hematocrit 23.5 % (37.5-50.1); Hemoglobin 7.8 g/dL (12.9-16.9)
[2019-11-02 08:12] LABS: Basophils % 0.1 %; Hematocrit 24.4 % (37.5-50.1); Hemoglobin 7.6 g/dL (12.9-16.9); Immature Granulocytes % 0.6 % (0-4); Lymphocytes # 0.1 K/mcL (0.6-4.6); Lymphocytes % 0.7 %; Mean Corpuscular HGB Conc 31.1 g/dL (31.6-35.5); Mean Corpuscular Hemoglobin 32.6 pg (28.0-33.3); Mean Corpuscular Volume 104.7 fL (83.0-100.0); Mean Platelet Volume 11.6 fL (9.4-12.4); Monocytes # 0.4 K/mcL (0.0-1.3); Neutrophils # 8.1 K/mcL (1.6-8.9); Platelet Count 113 K/mcL (140-400); Red Blood Count 2.33 M/mcL (4.19-5.50); Red Cell Distribution Width 17.8 % (11.5-14.5); Segmented Neutrophils % 93.6 %; White Blood Count 8.7 K/mcL (4.3-11.1)
[2019-11-02 08:56] LABS: Anisocytosis 1+ (Not Present); Platelet Estimate Slight Decrease (Normal)
[2019-11-02] MEDS: Sodium Bicarbonate 75 MEQ in 0.45 % Sodium Chloride 1,000 ML IVC SCH ×2 (10:11→21:54)
[2019-11-02 10:17] LABS: Hematocrit 22.4 % (37.5-50.1); Hemoglobin 8.3 g/dL (12.9-16.9)
[2019-11-02] MEDS: Acetaminophen IV 1,000 MG/100 ML INFUS..BTL IVPB SCH ×3 (12:00→23:11)
[2019-11-02] MEDS ORDERED: *HR* HYDROmorphone 2 MG/ML SYRINGE IVP PRN (12:12)
[2019-11-02] MEDS: *HR* HYDROmorphone (PF) 1 MG/ML SYRINGE IVP PRN ×5 (13:00→21:43)
[2019-11-02] MEDS: Ondansetron 4 MG/2 ML VIAL IVP PRN (14:30)
[2019-11-02 15:02] LABS: Hematocrit 22.7 % (37.5-50.1)
[2019-11-02 15:04] LABS: Hemoglobin 6.7 g/dL (12.9-16.9)
[2019-11-02] MEDS ORDERED: Furosemide 20 MG/2 ML VIAL IVP ONE (15:27)
[2019-11-02] MEDS ORDERED: 0.9 % Sodium Chloride 250 ML IVC SCH (15:30)
[2019-11-02] MEDS ORDERED: 0.9 % Sodium Chloride 250 ML ONE (15:42)
[2019-11-02] MEDS ORDERED: Clinimix E 5%-15% SOLUTION 2,000 ML with MVI, adult with vitamin K 10 ML IVC SCH (17:00)
[2019-11-02] MEDS ORDERED: Clinimix E 5%-15% SOLUTION 2,000 ML, Parenteral Amino Acid 10% 0 ML with MVI, adult wi... IVC SCH (17:00)
[2019-11-03] MEDS: Insulin LISPRO 300 UNITS/3 ML VIAL SQ SCH ×6 (00:12→22:49)
[2019-11-03] MEDS: *HR* HYDROmorphone (PF) 1 MG/ML SYRINGE IVP PRN ×7 (00:40→14:27)
[2019-11-03 01:30] LABS: Immature Granulocytes % 0.4 % (0-4); Lymphocytes % 1.3 %; Red Cell Distribution Width 17.8 % (11.5-14.5)
[2019-11-03 01:32] LABS: Basophils % 0.1 %; Eosinophils # 0.1 K/mcL (0.0-0.6); Eosinophils % 0.9 %; Hematocrit 26.7 % (37.5-50.1); Hemoglobin 8.9 g/dL (12.9-16.9); Immature Platelets 3.8 % (1.1-6.1); Lymphocytes # 0.1 K/mcL (0.6-4.6); Mean Corpuscular HGB Conc 33.3 g/dL (31.6-35.5); Mean Corpuscular Hemoglobin 31.9 pg (28.0-33.3); Mean Corpuscular Volume 95.7 fL (83.0-100.0); Monocytes # 0.7 K/mcL (0.0-1.3); Monocytes % 8.3 %; Neutrophils # 7.3 K/mcL (1.6-8.9); Red Blood Count 2.79 M/mcL (4.19-5.50); White Blood Count 8.2 K/mcL (4.3-11.1)
[2019-11-03 01:39] LABS: Platelet Count 84 K/mcL (140-400)
[2019-11-03 01:48] LABS: Calcium 7.2 mg/dL (8.6-10.3); Phosphorous 3.5 mg/dL (2.7-4.5); Potassium 3.9 mEq/L (3.5-5.1)
[2019-11-03 02:16] LABS: Anisocytosis 1+ (Not Present)
[2019-11-03 02:17] LABS: Platelet Estimate Decreased (Normal)
[2019-11-03] MEDS: Pantoprazole 40 MG VIAL IVP SCH ×2 (05:31→17:43)
[2019-11-03] MEDS: Acetaminophen IV 1,000 MG/100 ML INFUS..BTL IVPB SCH ×4 (05:37→23:25)
[2019-11-03 05:46] LABS: Hematocrit 27.9 % (37.5-50.1); Hemoglobin 9.3 g/dL (12.9-16.9)
[2019-11-03] MEDS: *HR* Heparin 5,000 UNIT/ML VIAL SQ SCH ×3 (06:03→21:28)
[2019-11-03] MEDS: Ondansetron 4 MG/2 ML VIAL IVP PRN (09:18)
[2019-11-03] MEDS ORDERED: *HR* HYDROmorphone 2 MG/ML SYRINGE IVP PRN (09:49)
[2019-11-03] MEDS: Sodium Bicarbonate 75 MEQ in 0.45 % Sodium Chloride 1,000 ML IVC SCH (10:41)
[2019-11-03 12:30] LABS: Hematocrit 24.2 % (37.5-50.1); Hemoglobin 7.8 g/dL (12.9-16.9)
[2019-11-03] MEDS ORDERED: *HR* HYDROmorphone 20 MG/20 ML PCA IVC PRN ×4 (14:53→15:31)
[2019-11-03] MEDS ORDERED: *HR* FentaNYL PATCH 50 MCG PATCH TD SCH (15:15)
[2019-11-03 15:41] LABS: Basophils % 0.6 %; Eosinophils % 0.4 %; Hematocrit 23.2 % (37.5-50.1); Hemoglobin 7.4 g/dL (12.9-16.9); Immature Granulocytes % 0.4 % (0-4); Lymphocytes # 0.1 K/mcL (0.6-4.6); Lymphocytes % 1.4 %; Mean Corpuscular HGB Conc 31.9 g/dL (31.6-35.5); Mean Corpuscular Hemoglobin 31.8 pg (28.0-33.3); Mean Corpuscular Volume 99.6 fL (83.0-100.0); Mean Platelet Volume 10.2 fL (9.4-12.4); Monocytes # 0.7 K/mcL (0.0-1.3); Monocytes % 9.4 %; Neutrophils # 6.1 K/mcL (1.6-8.9); Red Blood Count 2.33 M/mcL (4.19-5.50); Red Cell Distribution Width 18.5 % (11.5-14.5); Segmented Neutrophils % 87.8 %; White Blood Count 6.9 K/mcL (4.3-11.1)
[2019-11-03 15:42] LABS: Platelet Count 93 K/mcL (140-400)
[2019-11-03] MEDS ORDERED: 0.9 % Sodium Chloride 500 ML ONE (15:59)
[2019-11-03 16:17] LABS: Prothrombin Time 11.9 Seconds (9.4-12.1)
[2019-11-03 16:19] LABS: Activated Partial Thrombo Time 35.8 Seconds (26.0-36.0)
[2019-11-03] MEDS ORDERED: Clinimix E 5%-15% SOLUTION 2,000 ML, Parenteral Amino Acid 10% 250 ML with MVI, adult ... IVC SCH (17:00)
[2019-11-03 22:08] LABS: Hematocrit 28.6 % (37.5-50.1)
[2019-11-03 22:09] LABS: Hemoglobin 9.3 g/dL (12.9-16.9)
[2019-11-04] MEDS: Insulin LISPRO 300 UNITS/3 ML VIAL SQ SCH ×6 (01:35→21:46)
[2019-11-04] MEDS: *HR* Heparin 5,000 UNIT/ML VIAL SQ SCH ×3 (01:36→21:54)
[2019-11-04 04:26] LABS: Hematocrit 27.5 % (37.5-50.1); Hemoglobin 8.5 g/dL (12.9-16.9); Mean Corpuscular HGB Conc 30.9 g/dL (31.6-35.5); Mean Corpuscular Hemoglobin 31.4 pg (28.0-33.3); Mean Corpuscular Volume 101.5 fL (83.0-100.0); Platelet Count 114 K/mcL (140-400); Red Blood Count 2.71 M/mcL (4.19-5.50); Red Cell Distribution Width 18.2 % (11.5-14.5); White Blood Count 8.9 K/mcL (4.3-11.1)
[2019-11-04 04:33] LABS: Calcium 7.6 mg/dL (8.6-10.3); Magnesium 2.3 mg/dL (1.6-2.6); Phosphorous 3.7 mg/dL (2.7-4.5); Potassium 4.1 mEq/L (3.5-5.1)
[2019-11-04] MEDS: Pantoprazole 40 MG VIAL IVP SCH ×2 (06:14→16:26)
[2019-11-04] MEDS: Acetaminophen IV 1,000 MG/100 ML INFUS..BTL IVPB SCH ×3 (06:15→18:26)
[2019-11-04 09:48] LABS: Hematocrit 27.2 % (37.5-50.1); Hemoglobin 8.4 g/dL (12.9-16.9)
[2019-11-04] MEDS ORDERED: 0.9 % Sodium Chloride 500 ML ONE (12:39)
[2019-11-04] MEDS ORDERED: Clinimix E 5%-15% SOLUTION 2,000 ML, Parenteral Amino Acid 10% 250 ML with MVI, adult ... IVC SCH (17:00)
[2019-11-05] MEDS: Acetaminophen IV 1,000 MG/100 ML INFUS..BTL IVPB SCH ×3 (00:31→10:56)
[2019-11-05] MEDS: Insulin LISPRO 300 UNITS/3 ML VIAL SQ SCH ×6 (00:32→22:10)
[2019-11-05] MEDS: Pantoprazole 40 MG VIAL IVP SCH ×2 (05:10→16:52)
[2019-11-05] MEDS: *HR* Heparin 5,000 UNIT/ML VIAL SQ SCH ×3 (05:10→22:45)
[2019-11-05 05:21] LABS: Basophils % 0.5 %; Eosinophils # 0.1 K/mcL (0.0-0.6); Eosinophils % 1.5 %; Hematocrit 27.8 % (37.5-50.1); Hemoglobin 9.1 g/dL (12.9-16.9); Immature Granulocytes % 0.6 % (0-4); Lymphocytes # 0.2 K/mcL (0.6-4.6); Mean Corpuscular HGB Conc 32.7 g/dL (31.6-35.5); Mean Corpuscular Hemoglobin 32.2 pg (28.0-33.3); Mean Corpuscular Volume 98.2 fL (83.0-100.0); Mean Platelet Volume 10.6 fL (9.4-12.4); Monocytes # 0.8 K/mcL (0.0-1.3); Monocytes % 9.6 %; Neutrophils # 6.8 K/mcL (1.6-8.9); Platelet Count 107 K/mcL (140-400); Red Blood Count 2.83 M/mcL (4.19-5.50); Red Cell Distribution Width 16.9 % (11.5-14.5); Segmented Neutrophils % 85.8 %; White Blood Count 7.9 K/mcL (4.3-11.1)
[2019-11-05 05:39] LABS: Calcium 7.9 mg/dL (8.6-10.3); Magnesium 2.3 mg/dL (1.6-2.6); Phosphorous 3.7 mg/dL (2.7-4.5); Potassium 4.2 mEq/L (3.5-5.1)
[2019-11-05 05:40] LABS: Platelet Estimate Decreased (Normal)
[2019-11-05] MEDS ORDERED: 0.9 % Sodium Chloride 500 ML ONE (10:39)
[2019-11-05] MEDS: Ondansetron 4 MG/2 ML VIAL IVP PRN (11:53)
[2019-11-05] MEDS ORDERED: *HR* FentaNYL PATCH 50 MCG PATCH TD SCH ×2 (15:00)
[2019-11-05] MEDS ORDERED: Clinimix E 5%-15% SOLUTION 2,000 ML, Parenteral Amino Acid 10% 250 ML with MVI, adult ... IVC SCH (17:00)
[2019-11-06] MEDS: Insulin LISPRO 300 UNITS/3 ML VIAL SQ SCH ×6 (03:58→21:07)
[2019-11-06 04:50] LABS: Basophils % 0.5 %; Eosinophils # 0.1 K/mcL (0.0-0.6); Eosinophils % 1.1 %; Hematocrit 27.3 % (37.5-50.1); Hemoglobin 8.9 g/dL (12.9-16.9); Immature Granulocytes % 0.5 % (0-4); Lymphocytes # 0.1 K/mcL (0.6-4.6); Lymphocytes % 1.7 %; Mean Corpuscular HGB Conc 32.6 g/dL (31.6-35.5); Mean Corpuscular Hemoglobin 31.9 pg (28.0-33.3); Mean Corpuscular Volume 97.8 fL (83.0-100.0); Mean Platelet Volume 10.6 fL (9.4-12.4); Monocytes # 0.8 K/mcL (0.0-1.3); Monocytes % 10.1 %; Neutrophils # 6.9 K/mcL (1.6-8.9); Platelet Count 110 K/mcL (140-400); Red Blood Count 2.79 M/mcL (4.19-5.50); Red Cell Distribution Width 16.6 % (11.5-14.5); Segmented Neutrophils % 86.1 %
[2019-11-06 05:06] LABS: Calcium 8.2 mg/dL (8.6-10.3); Magnesium 2.5 mg/dL (1.6-2.6); Phosphorous 3.6 mg/dL (2.7-4.5); Potassium 4.4 mEq/L (3.5-5.1)
[2019-11-06 05:25] LABS: Anisocytosis 1+ (Not Present); Microcytosis Present (Not Present); Platelet Estimate Slight Decrease (Normal)
[2019-11-06] MEDS: *HR* Heparin 5,000 UNIT/ML VIAL SQ SCH (06:42)
[2019-11-06] MEDS: Pantoprazole 40 MG VIAL IVP SCH ×2 (06:43→17:55)
[2019-11-06] MEDS ORDERED: *HR* HYDROmorphone 20 MG/20 ML PCA IVC PRN (11:00)
[2019-11-06] MEDS ORDERED: 0.9 % Sodium Chloride 500 ML ONE (13:19)
[2019-11-06] MEDS ORDERED: *HR* FentaNYL PATCH 50 MCG PATCH TD SCH ×2 (15:00)
[2019-11-06] MEDS: *HR* FentaNYL PATCH 75 MCG PATCH TD SCH (15:49)
[2019-11-06] MEDS ORDERED: Clinimix E 5%-15% SOLUTION 2,000 ML, Parenteral Amino Acid 10% 250 ML with MVI, adult ... IVC SCH (17:00)
[2019-11-06] MEDS: Sennosides/Docusate Sodium TABLET PO SCH (21:11)
[2019-11-07] MEDS: Insulin LISPRO 300 UNITS/3 ML VIAL SQ SCH ×6 (00:37→20:42)
[2019-11-07] MEDS: Pantoprazole 40 MG VIAL IVP SCH ×2 (05:16→17:50)
[2019-11-07 05:39] LABS: Mean Corpuscular Hemoglobin 32.8 pg (28.0-33.3)
[2019-11-07 05:40] LABS: Basophils % 0.5 %
[2019-11-07 05:41] LABS: Eosinophils # 0.2 K/mcL (0.0-0.6); Eosinophils % 2.7 %; Hematocrit 23.7 % (37.5-50.1); Hemoglobin 7.6 g/dL (12.9-16.9); Immature Granulocytes % 0.3 % (0-4); Immature Platelets 2.6 % (1.1-6.1); Lymphocytes # 0.2 K/mcL (0.6-4.6); Mean Corpuscular HGB Conc 32.1 g/dL (31.6-35.5); Mean Corpuscular Volume 102.2 fL (83.0-100.0); Mean Platelet Volume 10.8 fL (9.4-12.4); Monocytes # 0.8 K/mcL (0.0-1.3); Monocytes % 12.9 %; Neutrophils # 4.8 K/mcL (1.6-8.9); Platelet Count 106 K/mcL (140-400); Red Blood Count 2.32 M/mcL (4.19-5.50); Red Cell Distribution Width 16.4 % (11.5-14.5); Segmented Neutrophils % 80.6 %; White Blood Count 5.9 K/mcL (4.3-11.1)
[2019-11-07] MEDS ORDERED: Levalbuterol Neb 0.63 MG/3 ML IH ONE (05:44)
[2019-11-07 05:58] LABS: Calcium 7.9 mg/dL (8.6-10.3); Magnesium 2.4 mg/dL (1.6-2.6); Potassium 4.4 mEq/L (3.5-5.1)
[2019-11-07 06:14] LABS: Platelet Estimate Slight Decrease (Normal)
[2019-11-07] MEDS: Sennosides/Docusate Sodium TABLET PO SCH ×2 (09:05→20:30)
[2019-11-08 04:50] LABS: Basophils % 0.4 %; Eosinophils # 0.1 K/mcL (0.0-0.6); Eosinophils % 1.6 %; Hematocrit 24.1 % (37.5-50.1); Hemoglobin 7.9 g/dL (12.9-16.9); Immature Granulocytes % 0.6 % (0-4); Immature Platelets 3.7 % (1.1-6.1); Lymphocytes # 0.2 K/mcL (0.6-4.6); Lymphocytes % 3.7 %; Mean Corpuscular HGB Conc 32.8 g/dL (31.6-35.5); Mean Corpuscular Volume 97.6 fL (83.0-100.0); Mean Platelet Volume 11.1 fL (9.4-12.4); Monocytes # 0.7 K/mcL (0.0-1.3); Monocytes % 14.2 %; Neutrophils # 3.9 K/mcL (1.6-8.9); Red Blood Count 2.47 M/mcL (4.19-5.50); Red Cell Distribution Width 16.3 % (11.5-14.5); Segmented Neutrophils % 79.5 %; White Blood Count 4.9 K/mcL (4.3-11.1)
[2019-11-08 05:02] LABS: Calcium 8.1 mg/dL (8.6-10.3); Magnesium 2.4 mg/dL (1.6-2.6); Platelet Count 94 K/mcL (140-400); Potassium 4.7 mEq/L (3.5-5.1)
[2019-11-08 05:21] LABS: Anisocytosis 1+ (Not Present); Microcytosis Present (Not Present); Platelet Estimate Slight Decrease (Normal)
[2019-11-08] MEDS: Pantoprazole 40 MG VIAL IVP SCH ×2 (06:25→18:31)
[2019-11-08] MEDS: Insulin LISPRO 300 UNITS/3 ML VIAL SQ SCH ×4 (08:03→20:36)
[2019-11-08] MEDS: Sennosides/Docusate Sodium TABLET PO SCH ×2 (09:58→20:39)
[2019-11-08 13:10] LABS: Hematocrit 26.6 % (37.5-50.1); Hemoglobin 9.2 g/dL (12.9-16.9)
[2019-11-09] MEDS: *HR* HYDROmorphone (PF) 1 MG/ML SYRINGE IVP PRN ×4 (00:41→21:10)
[2019-11-09] MEDS: Pantoprazole 40 MG VIAL IVP SCH ×2 (05:53→16:52)
[2019-11-09 06:19] LABS: Basophils % 0.6 %; Eosinophils # 0.1 K/mcL (0.0-0.6); Eosinophils % 2.7 %; Hematocrit 24.6 % (37.5-50.1); Hemoglobin 7.8 g/dL (12.9-16.9); Immature Granulocytes % 0.2 % (0-4); Lymphocytes # 0.2 K/mcL (0.6-4.6); Mean Corpuscular HGB Conc 31.7 g/dL (31.6-35.5); Mean Corpuscular Hemoglobin 32.2 pg (28.0-33.3); Mean Corpuscular Volume 101.7 fL (83.0-100.0); Mean Platelet Volume 10.8 fL (9.4-12.4); Monocytes # 0.7 K/mcL (0.0-1.3); Monocytes % 15.6 %; Neutrophils # 3.6 K/mcL (1.6-8.9); Platelet Count 114 K/mcL (140-400); Red Blood Count 2.42 M/mcL (4.19-5.50); Red Cell Distribution Width 16.2 % (11.5-14.5); Segmented Neutrophils % 76.9 %; White Blood Count 4.7 K/mcL (4.3-11.1)
[2019-11-09 06:37] LABS: Calcium 8.1 mg/dL (8.6-10.3); Platelet Estimate Slight Decrease (Normal); Potassium 4.4 mEq/L (3.5-5.1)
[2019-11-09 06:38] LABS: Anisocytosis 1+ (Not Present); Microcytosis Present (Not Present)
[2019-11-09] MEDS: Sennosides/Docusate Sodium TABLET PO SCH ×2 (07:59→21:10)
[2019-11-09] MEDS: Insulin LISPRO 300 UNITS/3 ML VIAL SQ SCH ×4 (08:44→21:09)
[2019-11-09 12:19] LABS: Hematocrit 25.6 % (37.5-50.1); Hemoglobin 8.6 g/dL (12.9-16.9)
[2019-11-09] MEDS: *HR* FentaNYL PATCH 75 MCG PATCH TD SCH (14:49)
[2019-11-10] MEDS: Pantoprazole 40 MG VIAL IVP SCH ×2 (06:13→18:43)
[2019-11-10 06:26] LABS: Basophils % 0.5 %; Eosinophils # 0.2 K/mcL (0.0-0.6); Eosinophils % 3.6 %; Hematocrit 23.9 % (37.5-50.1); Hemoglobin 7.7 g/dL (12.9-16.9); Immature Granulocytes % 0.5 % (0-4); Lymphocytes # 0.2 K/mcL (0.6-4.6); Mean Corpuscular HGB Conc 32.2 g/dL (31.6-35.5); Mean Corpuscular Hemoglobin 32.9 pg (28.0-33.3); Mean Corpuscular Volume 102.1 fL (83.0-100.0); Mean Platelet Volume 10.6 fL (9.4-12.4); Monocytes # 0.7 K/mcL (0.0-1.3); Monocytes % 16.3 %; Neutrophils # 3.1 K/mcL (1.6-8.9); Platelet Count 117 K/mcL (140-400); Red Blood Count 2.34 M/mcL (4.19-5.50); Segmented Neutrophils % 74.1 %; White Blood Count 4.2 K/mcL (4.3-11.1)
[2019-11-10 06:45] LABS: Potassium 4.1 mEq/L (3.5-5.1)
[2019-11-10] MEDS: Insulin LISPRO 300 UNITS/3 ML VIAL SQ SCH ×4 (08:52→20:09)
[2019-11-10] MEDS: Sennosides/Docusate Sodium TABLET PO SCH ×2 (09:34→20:12)
[2019-11-10] MEDS: *HR* HYDROmorphone (PF) 1 MG/ML SYRINGE IVP PRN ×2 (11:31→20:13)
[2019-11-10] MEDS: dexAMETHasone 4 MG TABLET PO SCH (14:24)
[2019-11-11] MEDS: *HR* HYDROmorphone (PF) 1 MG/ML SYRINGE IVP PRN ×3 (04:38→12:26)
[2019-11-11] MEDS: Pantoprazole 40 MG VIAL IVP SCH ×2 (05:50→18:51)
[2019-11-11] MEDS: Insulin LISPRO 300 UNITS/3 ML VIAL SQ SCH ×3 (09:43→18:50)
[2019-11-11] MEDS: dexAMETHasone 4 MG TABLET PO SCH (09:43)
[2019-11-11] MEDS: Sennosides/Docusate Sodium TABLET PO SCH ×2 (09:43→22:20)
[2019-11-11 12:48] LABS: Hematocrit 24.8 % (37.5-50.1); Hemoglobin 7.9 g/dL (12.9-16.9)
[2019-11-12] MEDS: Insulin LISPRO 300 UNITS/3 ML VIAL SQ SCH ×5 (03:49→21:01)
[2019-11-12] MEDS: Pantoprazole 40 MG VIAL IVP SCH ×2 (05:56→18:07)
[2019-11-12 06:18] LABS: Basophils % 0.4 %; Eosinophils # 0.2 K/mcL (0.0-0.6); Eosinophils % 3.7 %; Hematocrit 23.7 % (37.5-50.1); Hemoglobin 7.6 g/dL (12.9-16.9); Immature Granulocytes % 0.4 % (0-4); Lymphocytes # 0.3 K/mcL (0.6-4.6); Lymphocytes % 5.5 %; Mean Corpuscular HGB Conc 32.1 g/dL (31.6-35.5); Mean Corpuscular Hemoglobin 32.2 pg (28.0-33.3); Mean Corpuscular Volume 100.4 fL (83.0-100.0); Monocytes # 0.7 K/mcL (0.0-1.3); Monocytes % 15.3 %; Neutrophils # 3.4 K/mcL (1.6-8.9); Platelet Count 132 K/mcL (140-400); Red Blood Count 2.36 M/mcL (4.19-5.50); Red Cell Distribution Width 15.9 % (11.5-14.5); Segmented Neutrophils % 74.7 %; White Blood Count 4.6 K/mcL (4.3-11.1)
[2019-11-12 06:36] LABS: Calcium 7.8 mg/dL (8.6-10.3); Magnesium 2.2 mg/dL (1.6-2.6); Phosphorous 3.3 mg/dL (2.7-4.5); Potassium 4.2 mEq/L (3.5-5.1)
[2019-11-12] MEDS: *HR* HYDROmorphone (PF) 1 MG/ML SYRINGE IVP PRN (09:26)
[2019-11-12] MEDS: Sennosides/Docusate Sodium TABLET PO SCH ×2 (09:26→20:59)
[2019-11-12] MEDS: dexAMETHasone 4 MG TABLET PO SCH (09:26)
[2019-11-12] MEDS: *HR* FentaNYL PATCH 75 MCG PATCH TD SCH (14:37)
[2019-11-13 04:39] LABS: Hematocrit 24.6 % (37.5-50.1); Hemoglobin 8.2 g/dL (12.9-16.9)
[2019-11-13] MEDS: Pantoprazole 40 MG VIAL IVP SCH ×2 (06:16→17:44)
[2019-11-13] MEDS ORDERED: Isovue-300 50ML VIAL IVP ONE (08:41)
[2019-11-13] MEDS: Insulin LISPRO 300 UNITS/3 ML VIAL SQ SCH ×4 (09:10→20:02)
[2019-11-13] MEDS: dexAMETHasone 4 MG TABLET PO SCH (09:16)
[2019-11-13] MEDS: Sennosides/Docusate Sodium TABLET PO SCH ×2 (09:16→20:08)
[2019-11-14] MEDS: *HR* HYDROmorphone (PF) 1 MG/ML SYRINGE IVP PRN ×2 (03:55→04:29)
[2019-11-14 04:25] LABS: Hematocrit 25.4 % (37.5-50.1); Hemoglobin 8.2 g/dL (12.9-16.9); Mean Corpuscular HGB Conc 32.3 g/dL (31.6-35.5); Mean Corpuscular Hemoglobin 32.3 pg (28.0-33.3); Mean Platelet Volume 9.6 fL (9.4-12.4); Platelet Count 177 K/mcL (140-400); Red Blood Count 2.54 M/mcL (4.19-5.50); Red Cell Distribution Width 15.8 % (11.5-14.5); White Blood Count 5.6 K/mcL (4.3-11.1)
[2019-11-14 04:47] LABS: Calcium 7.9 mg/dL (8.6-10.3); Potassium 4.1 mEq/L (3.5-5.1)
[2019-11-14] MEDS: Pantoprazole 40 MG VIAL IVP SCH ×2 (06:13→16:50)
[2019-11-14] MEDS: Insulin LISPRO 300 UNITS/3 ML VIAL SQ SCH ×3 (08:59→16:44)
[2019-11-14] MEDS: Sennosides/Docusate Sodium TABLET PO SCH ×2 (09:06→20:02)
[2019-11-14] MEDS: dexAMETHasone 4 MG TABLET PO SCH (09:06)
[2019-11-14] MEDS: *HR* OxyCODONE Immed Rel 15 MG TABLET PO PRN ×2 (12:45→20:02)
[2019-11-15] MEDS: *HR* OxyCODONE Immed Rel 15 MG TABLET PO PRN ×3 (01:24→08:01)
[2019-11-15] MEDS: Pantoprazole 40 MG VIAL IVP SCH (04:38)
[2019-11-15 05:25] LABS: Hematocrit 24.8 % (37.5-50.1); Hemoglobin 8.1 g/dL (12.9-16.9); Mean Corpuscular HGB Conc 32.7 g/dL (31.6-35.5); Mean Corpuscular Hemoglobin 32.4 pg (28.0-33.3); Mean Corpuscular Volume 99.2 fL (83.0-100.0); Mean Platelet Volume 9.8 fL (9.4-12.4); Platelet Count 183 K/mcL (140-400); Red Cell Distribution Width 15.8 % (11.5-14.5); White Blood Count 5.3 K/mcL (4.3-11.1)
[2019-11-15 05:28] LABS: Calcium 7.8 mg/dL (8.6-10.3)
[2019-11-15 07:51] VITALS: BP 107/74
[2019-11-15] MEDS: Sennosides/Docusate Sodium TABLET PO SCH (08:01)
[2019-11-15] MEDS: dexAMETHasone 4 MG TABLET PO SCH (08:01)
== END 2019-11-15 15:01 | disposition home health service (06) | DRG 820 ==
LOC: EMEROOARM 18:35 → ICNU 23:05 → SUATTDRO 23:05 → ICNU 23:38 → 2NNU 10-26 14:22 → 2NENU 10-31 09:50
PROVIDERS: ADMIT Internal Medicine; ATTEND Pharmacist
PROC: ENDOEBX (2019-10-25 19:00)

== ENCOUNTER 2019-12-13 19:26 | Inpatient (IN) ==
[~2019-12-13 19:26] MED LIST: Aminoglycoside Consult 1 EACH MC ONE
[2019-12-13] MEDS ORDERED: Piperacillin/Tazobactam 3.375 GM in 0.9 % Sodium Chloride Mini Bag 100 ML IVPB ONE (19:31)
[2019-12-13] MEDS: 0.9 % Sodium Chloride 1,000 ML IVC SCH ×2 (20:11→20:12)
[2019-12-13 20:28] LABS: Hematocrit 20.3 % (37.5-50.1); Lymphocytes # 0.1 K/mcL (0.6-4.6); Mean Corpuscular HGB Conc 34.5 g/dL (31.6-35.5); Mean Corpuscular Hemoglobin 30.6 pg (28.0-33.3); Mean Corpuscular Volume 88.6 fL (83.0-100.0); Red Blood Count 2.29 M/mcL (4.19-5.50); Red Cell Distribution Width 14.7 % (11.5-14.5)
[2019-12-13 20:42] LABS: Alanine Aminotransferase 20 Units/L (7-52); Albumin/Globulin Ratio 1.7 (1.1-2.2); Alkaline Phosphatase 42 Units/L (34-104); Aspartate Amino Transferase 16 Units/L (13-39); BUN/Creatinine Ratio 17 (6-26); Bilirubin,Direct 0.1 mg/dL (0.0-0.2); Bilirubin,Indirect 0.2 mg/dL (0.0-1.0); Bilirubin,Total 0.3 mg/dL (0.3-1.0); Blood Urea Nitrogen 13 mg/dL (6-20); Carbon Dioxide 25 mEq/L (23-29); Chloride 109 mEq/L (98-107); Globulin 2.4 g/dL (2.4-3.5); Glucose 93 mg/dL (70-105); Osmolality,Calculated 288 (280-300); Sodium 139 mEq/L (136-145); Total Protein 6.4 g/dL (6.4-8.9); Troponin I 0.35 ng/mL (< 0.04); eGFR For African Americans > 60 (> 60); eGFR For Non-African Americans > 60 (> 60)
[2019-12-13 20:43] LABS: Platelet Count 8 K/mcL (140-400); White Blood Count 0.2 K/mcL (4.3-11.1)
[2019-12-13] MEDS ORDERED: Azithromycin 500 MG in D5% in Water 250 ML IVPB ONE (21:02)
[2019-12-13 21:32] LABS: Large Platelets Present (Not Present)
[2019-12-13 21:33] LABS: Burr Cells 3+ (Not Present); Target Cells 1+ (Not Present)
[2019-12-13 21:55] LABS: Bilirubin,Urine Moderate (Negative); Blood,Urine Large (Negative); Clarity,Urine Turbid (Clear); Glucose,Urine (UA) Normal (Normal); Ketones,Urine Trace mg/dL (Negative); Leukocyte Esterase,Urine Small (Negative); Nitrite,Urine Positive (Negative); PH,Urine 5.5 pH Units (5.0-8.0); Protein,Urine 30 mg/dL (Neg-Trace); Specific Gravity,Urine 1.016 (1.010-1.025); Urobilinogen,Urine Normal (Normal)
[2019-12-13 21:57] LABS: Squamous Epithelial Cell,Urine Many per lpf (None-Few)
[2019-12-13 21:58] LABS: Color,Urine Amber (Yellow)
[2019-12-13] MEDS ORDERED: *HR* Norepinephrine 4 MG/4 ML VIAL IVC ONE (21:58)
[2019-12-13] MEDS ORDERED: 0.9 % Sodium Chloride 250 ML ONE (21:58)
[2019-12-13] MEDS: Norepinephrine 4 MG in 0.9 % Sodium Chloride 250 ML IVC SCH (22:08)
[2019-12-13 22:13] LABS: RBC,Urine 50-100 per hpf (0-3); Transitional Epi Cells,Urine Few per hpf (None-Few)
[2019-12-13 22:16] LABS: Granular Casts,Urine Few per lpf (None Seen); Hyaline Casts,Urine Few per lpf (None-Few)
[2019-12-13 22:17] LABS: Bacteria,Urine Moderate per hpf (None-Few); Mucus,Urine Few per lpf (Few); Oval Fat Bodies,Urine Present (None Seen)
[2019-12-13] MEDS ORDERED: Isovue-370 500 ML BOTTLE IVP ONE (23:11)
[2019-12-13] MEDS ORDERED: 0.9 % Sodium Chloride 1,000 ML IVC ONE (23:18)
[2019-12-14] MEDS ORDERED: Naloxone 0.4 MG/ML INJ IVP PRN (00:41)
[2019-12-14] MEDS ORDERED: Acetaminophen 325 MG TABLET PO PRN (00:41)
[2019-12-14] MEDS ORDERED: 0.9 % Sodium Chloride 250 ML ONE (01:05)
[2019-12-14] MEDS ORDERED: Ringers Solution, Lactated 1,000 ML IVC SCH (01:15)
[2019-12-14 01:46] LABS: Adenovirus Not Detected (Not Detect); Coronavirus 229E Not Detected (Not Detect); Coronavirus HKU1 Not Detected (Not Detect); Coronavirus NL63 Not Detected (Not Detect); Coronavirus OC43 Not Detected (Not Detect); Human Metapneumovirus Not Detected (Not Detect); Human Rhinovirus/Enterovirus Not Detected (Not Detect); Influenza A Subtype 2009 H1 Not Detected (Not Detect)
[2019-12-14 01:47] LABS: Bordetella Pertussis Not Detected (Not Detect); Chlamydophila pneumoniae Not Detected (Not Detect); Influenza B Not Detected (Not Detect); Mycoplasma pneumoniae Not Detected (Not Detect); Parainfluenza Virus 1 Not Detected (Not Detect); Parainfluenza Virus 2 Not Detected (Not Detect); Parainfluenza Virus 3 Not Detected (Not Detect); Parainfluenza Virus 4 Not Detected (Not Detect); Respiratory Syncytial Virus Not Detected (Not Detect)
[2019-12-14 02:52] LABS: ABG Base Excess -4 mEq/L (-2 to 3); ABG HCO3 20 mEq/L (21-27); ABG Oxygen Saturation 98 % (95-98); ABG PCO2 31 mmHg (35-45); ABG PH 7.41 pH Units (7.32-7.45); ABG PO2 103 mmHg (85-104); ABG TCO2 21 mEq/L (20-26)
[2019-12-14] MEDS: Norepinephrine 4 MG in 0.9 % Sodium Chloride 250 ML IVC SCH (05:18)
[2019-12-14 07:01] LABS: Hematocrit 17.3 % (37.5-50.1); Mean Corpuscular HGB Conc 33.5 g/dL (31.6-35.5); Mean Corpuscular Hemoglobin 29.3 pg (28.0-33.3); Mean Corpuscular Volume 87.4 fL (83.0-100.0); Red Blood Count 1.98 M/mcL (4.19-5.50); Red Cell Distribution Width 14.9 % (11.5-14.5)
[2019-12-14 07:17] LABS: BUN/Creatinine Ratio 30 (6-26); Blood Urea Nitrogen 55 mg/dL (6-20); Calcium 6.9 mg/dL (8.6-10.3); Carbon Dioxide 17 mEq/L (23-29); Chloride 103 mEq/L (98-107); Glucose 144 mg/dL (70-105); Osmolality,Calculated 296 (280-300); Potassium 4.7 mEq/L (3.5-5.1); Sodium 134 mEq/L (136-145); Troponin I < 0.03 ng/mL (< 0.04); eGFR For African Americans 47 (> 60); eGFR For Non-African Americans 38 (> 60)
[2019-12-14] MEDS ORDERED: Piperacillin/Tazobactam 3.375 GM in 0.9 % Sodium Chloride Mini Bag 100 ML IVPB SCH (08:00)
[2019-12-14] MEDS ORDERED: MetroNIDAZOLE 500 MG/100 ML 500 MG/100 ML BAG IVPB SCH (08:00)
[2019-12-14 08:06] LABS: White Blood Count 0.1 K/mcL (4.3-11.1)
[2019-12-14 08:07] LABS: Hemoglobin 5.8 g/dL (12.9-16.9)
[2019-12-14 08:08] LABS: Platelet Count 7 K/mcL (140-400)
[2019-12-14] MEDS ORDERED: Perflutren Lipid Microsphere 1.3 ML in 0.9 % Sodium Chloride 8.7 ML IVP ONE (08:17)
[2019-12-14] MEDS ORDERED: Fluconazole 400 MG/200 ML 400 MG/200 ML BAG IVPB SCH (09:00)
[2019-12-14] MEDS ORDERED: levoFLOXacin 500 MG/100 ML 500 MG/100 ML BAG IVPB SCH (09:00)
[2019-12-14 09:39] LABS: Hematocrit 15.5 % (37.5-50.1); Mean Corpuscular HGB Conc 33.5 g/dL (31.6-35.5); Mean Corpuscular Hemoglobin 29.2 pg (28.0-33.3); Mean Corpuscular Volume 87.1 fL (83.0-100.0); Red Blood Count 1.78 M/mcL (4.19-5.50); Red Cell Distribution Width 14.8 % (11.5-14.5)
[2019-12-14 09:43] LABS: Hemoglobin 5.2 g/dL (12.9-16.9); White Blood Count 0.1 K/mcL (4.3-11.1)
[2019-12-14 09:44] LABS: Platelet Count 13 K/mcL (140-400)
[2019-12-14 10:52] VITALS: BP 90/67
[2019-12-14 11:20] LABS: Lymphocytes # 0.1 K/mcL (0.6-4.6)
[2019-12-14 11:21] LABS: Anisocytosis 1+ (Not Present); Microcytosis Present (Not Present); Platelet Estimate Marked Decrease (Normal); Poikilocytosis 2+ (Not Present); Target Cells 2+ (Not Present)
[2019-12-14 15:16] LABS: Acinetobacter baumannii by PCR Not Detected (Not Detect); Candida albicans by PCR Not Detected (Not Detect); Candida glabrata by PCR Not Detected (Not Detect); Candida krusei by PCR Not Detected (Not Detect); Candida parapsilosis by PCR Not Detected (Not Detect); Candida tropicalis by PCR Not Detected (Not Detect); Enterobacter cloacae Cmplx PCR DETECTED (Not Detect); Enterococcus by PCR Not Detected (Not Detect); Escherichia coli by PCR Not Detected (Not Detect); Klebsiella oxytoca by PCR Not Detected (Not Detect); Klebsiella pneumoniae by PCR Not Detected (Not Detect); Proteus by PCR Not Detected (Not Detect); Pseudomonas aeruginosa by PCR Not Detected (Not Detect); Serratia marcescens by PCR Not Detected (Not Detect); Staphylococcus aureus by PCR Not Detected (Not Detect); Staphylococcus by PCR Not Detected (Not Detect); Streptococcus agalactiae(B)PCR Not Detected (Not Detect); Streptococcus by PCR Not Detected (Not Detect); Streptococcus pneumoniae PCR Not Detected (Not Detect); Streptococcus pyogenes (A) PCR Not Detected (Not Detect); blaKPC Carbapenem-Resist Gene Not Detected (Not Detect); mecA Methicillin-Resist Gene Not Detected (Not Detect); vanA/B Vancomycin-Resist Genes Not Detected (Not Detect)
== END 2019-12-14 11:14 | disposition short-term general hospital (02) | DRG 871 ==
LOC: EMEROOARM 19:26 → ICNU 22:40
PROVIDERS: ADMIT Student in an Organized Health Care Education/Training Program; ATTEND Student in an Organized Health Care Education/Training Program